=== PATIENT | female | born 1965 ===

== ENCOUNTER 2016-08-31 08:09 | Day surgery (SDC) | payer SELFPAY ==
[2016-08-31 08:27] VITALS: BMI 25.4
[2016-08-31] MEDS ORDERED: Lactated Ringer's 1,000 ML IV ONE (09:10)
[2016-08-31 09:23] LABS: BASO % 0.4 % (0.0-2.0); EOS # 0.1 K/uL (0.0-0.7); EOS % 1.9 % (0.0-4.0); HEMOGLOBIN 9.8 g/dL (12.0-16.0); LYMPH # 1.1 K/uL (1.0-4.3); LYMPH % 17.4 % (20.0-40.0); MEAN CELL VOLUME 82.2 fl (81.0-99.0); MEAN CORPUSCULAR HEMOGLOBIN 26.5 pg (27.0-31.0); MEAN CORPUSCULAR HGB CONC 32.2 g/dL (33.0-37.0); MEAN PLATELET VOLUME 8.9 fl (7.2-11.7); MONO # 0.5 K/uL (0.0-0.8); MONO % 7.9 % (0.0-10.0); NEUT # 4.4 K/uL (1.8-7.0); NEUT % 72.4 % (50.0-75.0); RBC 3.69 Mil/uL (3.80-5.20); RED CELL DISTRIBUTION WIDTH 15.9 % (11.5-14.5)
[2016-08-31] MEDS ORDERED: Bupivacaine 0.5% Inj(30mL) ONE (09:26)
[2016-08-31] MEDS ORDERED: Lidocaine 1% Inj (20ml) ONE (09:26)
[2016-08-31 09:28] LABS: BLOOD UREA NITROGEN 14 mg/dl (7-17); CALCIUM 8.9 mg/dL (8.4-10.2); GFR AFRICAN-AMERICAN > 60; GFR NON-AFRICAN AMERICAN > 60
[2016-08-31 09:34] LABS: PARTIAL THROMBOPLASTIN TIME 31.3 Seconds (25.6-37.1); PROTHROMBIN TIME 11.8 Seconds (9.8-13.1)
[2016-08-31] MEDS ORDERED: Iohexol 300 100 ML IJ ONE (09:42)
[2016-08-31] MEDS ORDERED: Iohexol 300 10 ML ONE (09:42)
--- NOTE | 2016-08-31 09:42 | CP.SDSHP ---
Same Day Surgery H & P - History Proposed Procedure: Port-a-cath insertion Pre-Op Diagnosis: B cell Lymphoma - Previous Medical/Surgical History Pain: 2.Mild Pain Previous Surgical History: Neck mass biopsy - Allergies Allergies: Allergies No Known Allergies Allergy (Verified 08/31/16 08:27) - Physical Exam General Appearance: NAD, AAOx3 Vital Signs: Vital Signs 08/31/16 09:15 Temperature 98.8 F Pulse Rate 66 Respiratory 18 Rate Blood Pressure 90/55 L O2 Sat by Pulse 96 Oximetry Mental Status: Alert & Oriented x3 Neuro: WNL Heart: WNL Lungs: WNL GI: WNL - {Optional Preform as Required} Breast: WNL Abdomen: WNL Integument: Other ENT: Other (b/l neck masses. TTP. 4x3) - Date & Time Date: 08/31/16 Time: 09:42 Short Stay Discharge - Short Stay Discharge Admitting Diagnosis/Reason for Visit: C85.10 Disposition: HOME/ ROUTINE Referrals: Holger Palma MD [Staff Provider] - Follow-up: F/U with Dr. Palma in 1-2 weeks. Instructions: Tunneled Central Lines Adult (DC)
[2016-08-31] MEDS ORDERED: Propofol 10 mg/ml Inj (20 ML) ONE (10:21)
[2016-08-31] MEDS ORDERED: Midazolam 2 MG/2 ML VIAL ONE (10:21)
[2016-08-31] MEDS ORDERED: Lidocaine 1% Inj (20ml) IJ ONE (10:52)
[2016-08-31] MEDS ORDERED: ePHEDrine 50 mg/ml Inj ONE (11:07)
--- NOTE | 2016-08-31 11:40 | PCM.SURG1 ---
Surgeon's Initial Post Op Note - Surgeon's Notes Surgeon: Dr. Palma Director Of Vocational Training: Dr. Eckert PGY-3, Dr. Menendez PGY-2 Type of Anesthesia: General LMA, Local Pre-Operative Diagnosis: B cell lymphoma Operative Findings: Placement confirmed via fluoro Post-Operative Diagnosis: B cell lymphoma Operation Performed: Right subclavian Portacath insertion Specimen/Specimens Removed: none Estimated Blood Loss: EBL {In ML}: 10 Blood Products Given: N/A Drains Used: No Drains Post-Op Condition: Good Date of Surgery/Procedure: 08/31/16 Time of Surgery/Procedure: 10:00
[2016-08-31 13:32] VITALS: RESP 18
[2016-08-31 14:34] VITALS: O2SAT 98
[2016-08-31 16:50] VITALS: BP 88/60; PULSE 72; TEMP 98
--- NOTE | 2016-08-31 17:07 | RAD ---
PROCEDURE: CHEST RADIOGRAPH, 1 VIEW. Portable study 11:45. HISTORY: Portacath insertion. In PACU COMPARISON: None available. FINDINGS: LUNGS: Clear. PLEURA: No pneumothorax or pleural fluid seen. CARDIOVASCULAR: No radiographic findings to suggest acute or significant cardiovascular disease. Venous access catheter in satisfactory position. OSSEOUS STRUCTURES: No significant abnormalities. VISUALIZED UPPER ABDOMEN: Normal. OTHER FINDINGS: None. IMPRESSION: No pneumothorax or other adverse findings following Port-A-Cath insertion. Catheter tip in the SVC.
--- NOTE | 2016-08-31 20:58 | CARD ---
APPROVED REPORT EKG Measurement Heart [id number] OR [id number] <Conclusion> Normal sinus rhythm Normal ECG
--- NOTE | 2016-09-01 05:28 | OP ---
PROCEDURE DATE: 08/31/2016 PREOPERATIVE DIAGNOSIS: B-cell lymphoma. POSTOPERATIVE DIAGNOSIS: B-cell lymphoma. PROCEDURE: Right subclavian Port-A-Cath insertion. SURGEON: Dr. Palma. EMISSION SPECIALIST: Dr. Eckert. TYPE OF ANESTHESIA: General. ANESTHESIA ADMINISTERED BY: Dr. Melendez. DESCRIPTION OF OPERATION: With the patient in the supine position under adequate general anesthesia, a shoulder roll was placed. The right upper chest and lower neck were prepped and draped in the usual sterile manner. A 1% lidocaine was infiltrated and a right subclavian vein puncture was performed. The guidewire was passed and position was confirmed with C-arm. Additional 1% lidocaine was infiltrated and a subcutaneous pocket was created in the right pectoral region below the venipuncture site. The catheter of a 6-[employer] was tunneled from the pocket site to the insertion site. The vein dilator and introducer were passed over the guidewire into the superior vena cava. The dilator and guidewire were removed, and under C-arm guidance, the catheter was passed via the introducer and positioned in the lower portion of the superior vena cava. The introducer was peeled away and the catheter was trimmed at 15 cm at the pocket level. The catheter was aspirated for blood return and flushed with heparinized saline. The catheter was then fixed to the port, which was also filled with heparinized saline using the fixation device and the port was placed into the previously created pocket, sutured to the pectoral fascia with a 3-0 Vicryl suture. The catheter system was again aspirated for blood return and flushed with heparinized saline and the pocket was closed with running subcuticular suture of 4-0 Monocryl and Steri-Strips. Additional imaging was used to confirm that there was no kinking and that the catheter was properly positioned. A dry sterile dressing was applied. The patient tolerated the procedure well and transferred to the recovery room in stable condition. Holger Palma MD
== END 2016-08-31 16:20 | disposition home or self-care (01) ==
LOC: H.OPSURG 08:09
PROVIDERS: ATTEND Specialist
DX: C85.10 Unspecified B-cell lymphoma, unspecified site (principal)

== ENCOUNTER 2016-09-14 10:36 | Day surgery (SDC) | payer SELFPAY ==
[2016-09-14 11:07] VITALS: BMI 25.4
[2016-09-14] MEDS ORDERED: Lactated Ringer's 1,000 ML IV ONE (12:00)
[2016-09-14] MEDS ORDERED: Lidocaine 1% Inj (20ml) ONE (13:29)
[2016-09-14] MEDS ORDERED: Bupivacaine 0.5% Inj(30mL) ONE (13:29)
[2016-09-14] MEDS ORDERED: Midazolam 2 MG/2 ML VIAL ONE (13:40)
--- NOTE | 2016-09-14 14:09 | CP.SDSHP ---
Same Day Surgery H & P - History Proposed Procedure: Revision of port-a-cath Pre-Op Diagnosis: Malfunctioning Port-a-cath - Previous Medical/Surgical History Pain: 0. No Pain Comments: B-Cell lymphoma Previous Surgical History: Port-a-cath placement, , Cyst removal - Allergies Allergies: Allergies No Known Allergies Allergy (Verified 09/14/16 11:07) - Current Medications Current Medications: Receiving Chemo - Physical Exam General Appearance: No Acute Distress Vital Signs: Vital Signs 09/14/16 09/14/16 11:25 11:50 Temperature 98.7 F Pulse Rate 53 L 53 L Respiratory 18 Rate Blood Pressure 90/56 L O2 Sat by Pulse 99 Oximetry Mental Status: Alert & Oriented x3 Neuro: WNL Heart: WNL Lungs: WNL GI: WNL - {Optional Preform as Required} Abdomen: WNL Other Pertinent Findings: Right upper chest palpable portacath. No erythema, no induration - Impression Impression: Port-a-cath malfunction. Pt. Evaluated Today:Candidate for Anesthesia & Procedure: Yes Short Stay Discharge - Short Stay Discharge Admitting Diagnosis/Reason for Visit: C89.10 Disposition: HOME/ ROUTINE Referrals: Noreen Lorenz MD [Primary Care Provider] - Progress Note/Discharge Note with Instructions: Patient is cleared for discharge. 1. Follow up with Dr. Palma in 10 days. Call for appointment 2. You may resume your scheduled treatments via portacath use. 3. Return to the ER with any concerning symptoms.
[2016-09-14] MEDS ORDERED: Lactated Ringer's 1,000 ML IV SCH (14:36)
--- NOTE | 2016-09-14 14:39 | PCM.SURG1 ---
Surgeon's Initial Post Op Note - Surgeon's Notes Surgeon: Dr. Palma Transmission Maintenance Supervisor: Karlos PGY1 Type of Anesthesia: IV Sedation, Local Anesthesia Administered By: Dr. Delaney Pre-Operative Diagnosis: Malfunctioning Port-a-cath Operative Findings: No malfunction of port-a-cath noted Post-Operative Diagnosis: Port-a-cath Operation Performed: Aspiration of port-a-cath, injection of hepranized saline Specimen/Specimens Removed: none Estimated Blood Loss: EBL {In ML}: 0 Blood Products Given: N/A Drains Used: No Drains Post-Op Condition: Good Date of Surgery/Procedure: 09/14/16 Time of Surgery/Procedure: 14:39
[2016-09-14 16:53] VITALS: O2SAT 100
[2016-09-14 16:54] VITALS: BP 102/64; PULSE 54; RESP 20; TEMP 97.2
--- NOTE | 2016-09-14 21:22 | OP ---
SURGEON: Dr. Palma. ACTIVITY AID: Dr Everett. TYPE OF ANESTHESIA: IV sedation. ANESTHESIA ADMINISTERED BY: Dr. Delaney. PREOPERATIVE DIAGNOSIS: Malfunctioning Port-a-Cath. POSTOPERATIVE DIAGNOSIS: Port-a-Cath. PROCEDURE: Aspiration and flushing of right subclavian Port-a-Cath. DESCRIPTION OF OPERATION: With the patient in the supine position having received IV sedation, the right upper chest and lower neck were prepped and draped in the usual sterile manner. The patient had a right subclavian Port-a-Cath placed approximately 1 week prior to this date of surgery and reportedly attempt to access it were unsuccessful. The area of the Port was palpated and using a Duong needle, the Port was accessed on the right chest wall and it was aspirated with good blood return. The Port was then flushed with 8 mL of 1 unit per mL of heparinized saline and flushed again with a clean 10 mL of heparinized saline. The Duong needle was removed and dry sterile dressing was applied. The patient tolerated the procedure well and transferred to recovery room in stable condition. ESTIMATED BLOOD LOSS: 1 mL. Holger Palma MD MTDD
== END 2016-09-14 23:00 | disposition home or self-care (01) ==
LOC: H.OPSURG 10:36
PROVIDERS: ATTEND Specialist
DX: T82.514A Breakdown (mechanical) of infusion catheter, initial encounter (principal); Y83.8 Other surgical procedures as the cause of abnormal reaction of the patient, or of later complication, without mention of misadventure at the time of the procedure; C85.10 Unspecified B-cell lymphoma, unspecified site